=== PATIENT | male | born 1950 | race Two or more races ===

== ENCOUNTER 2025-01-21 08:02 | Emergency (ER) | payer OTHER ==
[~2025-01-21] VITALS: Ht 175.3 cm; Wt 90.7 kg
[2025-01-21] MEDS ORDERED: ZESTRIL5 MG PO (08:15)
[2025-01-21] MEDS ORDERED: TAGAMET HB200 MG PO (08:15)
[2025-01-21] MEDS ORDERED: KETOROLAC TROMETHAMINE 60 MG VIAL IM ONE ×2 (08:45→09:18)
[2025-01-21] MEDS ORDERED: FAMOtidine 10 MG/ML (4ML VIAL) IV PUSH ONE (08:45)
[2025-01-21 09:53] LABS: HEMATOCRIT 40.8 % (39.0-48.0); HEMOGLOBIN 14.1 g/dL (13-16.00); MEAN CELL VOLUME 90.4 fL (80.0-100.00); MEAN CORPUSCULAR HEMOGLOBIN 31.2 pg (27.00-32.0); MEAN CORPUSCULAR HGB CONC 34.5 g/dl (32.0-36.0); PLATELET COUNT 221 K/uL (150-450); RED BLOOD COUNT 4.51 M/uL (4.00-6.00); RED CELL DISTRIBUTION WIDTH 14.3 % (11.5-14.5)
[2025-01-21] MEDS ORDERED: AZITHROMYCIN500 M3 IV (10:19)
[2025-01-21] MEDS ORDERED: PROTONIX40 MG PO (10:19)
== END 2025-01-21 11:09 | disposition home or self-care (01) ==
LOC: ER 08:03
PROVIDERS: General Practice
DX: R53.81 Other malaise (principal); J00 Acute nasopharyngitis [common cold]; Z20.822 Contact with and (suspected) exposure to COVID-19; I10 Essential (primary) hypertension
CPT/HCPCS: 36415; 96365; 96372; 99282; J1885; J3490